=== PATIENT | female | born 1945 | race Caucasian/White ===

== ENCOUNTER 2019-07-10 22:50 | Inpatient (IN) | payer OTHER ==
[~2019-07-10] VITALS: Ht 167.6 cm; Wt 82.6 kg
[2019-07-10] MEDS ORDERED: XARELTO20 M1 (23:16)
[2019-07-10] MEDS ORDERED: LETROZOLE2.5 MG (23:17)
[2019-07-10] MEDS ORDERED: ATIVAN0.5 M1 (23:17)
[2019-07-10] MEDS ORDERED: AVAPRO300 MG (23:17)
[2019-07-10] MEDS ORDERED: PRILOSEC OTC20 MG (23:17)
[2019-07-10] MEDS ORDERED: LIPITOR20 MG (23:17)
[2019-07-19] MEDS ORDERED: LEVAQUIN750 MG PO (07:49)
[2019-07-19] MEDS ORDERED: LASIX20 MG PO (07:49)
[2019-07-19] MEDS ORDERED: LETROZOLE2.5 MG PO (07:49)
== END 2019-07-20 13:54 | disposition home or self-care (01) | DRG 603 ==
LOC: ER 22:50 → SEC-K 07-11 10:23 → MEDI 07-11 10:23
PROVIDERS: ADMIT Internal Medicine
PROC: BW24ZZZ Computerized Tomography (CT Scan) of Chest and Abdomen (ICD-10-PCS; principal; 2019-07-16)
PROC: B245ZZZ Ultrasonography of Left Heart (ICD-10-PCS; 2019-07-17)
DX: L03.113 Cellulitis of right upper limb (principal); A04.72 Enterocolitis due to Clostridium difficile, not specified as recurrent; I97.2 Postmastectomy lymphedema syndrome; Y83.8 Other surgical procedures as the cause of abnormal reaction of the patient, or of later complication, without mention of misadventure at the time of the procedure; E11.9 Type 2 diabetes mellitus without complications; I10 Essential (primary) hypertension; Z85.3 Personal history of malignant neoplasm of breast; Z79.01 Long term (current) use of anticoagulants